=== PATIENT | female | born 1995 | race Caucasian/White ===

== ENCOUNTER 2018-10-13 15:32 | Inpatient (IN) | payer BC, OTHER ==
[2018-10-13] MEDS ORDERED: Tranexamic Acid 1,000 MG in Sodium Chloride 0.9% 100 ML IV PRN (15:45)
[2018-10-13] MEDS ORDERED: Oxytocin/0.9 % Sodium Chloride 30 UNIT/500 ML BAG IV SCH ×2 (15:45)
[2018-10-13] MEDS ORDERED: Methylergonovine 0.2 MG/1 ML Amp IM PRN (15:45)
[2018-10-13] MEDS ORDERED: Sodium Chloride 0.9% 10 ML Syringe FLUSH PRN (15:45)
[2018-10-13] MEDS ORDERED: Nalbuphine 10 MG/1 ML Vial IVPUSH PRN (15:45)
[2018-10-13] MEDS ORDERED: Sodium Chloride 0.9% 2.5 ML Syringe FLUSH PRN (15:45)
[2018-10-13] MEDS ORDERED: Lidocaine 1% 50 ML MDV INJECT PRN (15:45)
[2018-10-13] MEDS ORDERED: Water For Irrigation,Sterile 1,000 ML Container IRR PRN (15:45)
[2018-10-13] MEDS ORDERED: Butorphanol 1 MG/ML SDV IVPUSH PRN (15:45)
[2018-10-13] MEDS ORDERED: Carboprost Tromethamine 250 MCG/1 ML Amp IM PRN (15:45)
[2018-10-13] MEDS ORDERED: Terbutaline 1 MG/ML SDV SUBCUT PRN (15:45)
[2018-10-13] MEDS ORDERED: Misoprostol 200 MCG Tab PO PRN (15:45)
[2018-10-13] MEDS ORDERED: Ampicillin 2 GM in Sodium Chloride 0.9% 100 ML IV ONE (16:15)
[2018-10-13] MEDS ORDERED: Misoprostol 25 MCG (1/4 of 100 MCG) Tab VAG PRN ×2 (16:30→22:30)
[2018-10-13] MEDS: Lactated Ringers 1,000 ML IV SCH (16:48)
[2018-10-13] MEDS: Ampicillin 1 GM in Sodium Chloride 0.9% 50 ML IV SCH (20:45)
[2018-10-14] MEDS: Ampicillin 1 GM in Sodium Chloride 0.9% 50 ML IV SCH ×5 (00:44→22:06)
[2018-10-14] MEDS ORDERED: Lidocaine HCl/EPINEPHrine 5 ML IJ ONE (05:47)
[2018-10-14] MEDS ORDERED: fentaNYL 100 MCG/2 ML SDV ONE ×2 (05:48→15:56)
--- NOTE | 2018-10-14 06:46 | PCM.PREANE ---
Preanesthetic Assessment - Anesthesia/Transfusion/Family Hx Anesthesia History: Prior Anesthesia Without Reaction Family History of Anesthesia Reaction: No Transfusion History: No Prior Transfusion(s) - Review of Systems General: No Symptoms Pulmonary: No Symptoms Cardiovascular: No Symptoms Gastrointestinal: No Symptoms Neurological: No Symptoms Other: Reports: Easy Bleeding (Patient has factor V and has been on sq heparin which was stopped over 24 hours ago) - Physical Assessment Height: 1.63 m Weight: 77.111 kg ASA Class: 3 Mental Status: Alert & Oriented x3 Dentition: Reports: Normal Dentition (tongue piercing) ROM/Head Extension: Full - Lab Values: Laboratory Last Values WBC 14.72 K/uL (4.0-11.0) H 10/13/18 16:07 RBC 4.09 M/uL (4.30-5.90) L 10/13/18 16:07 Hgb 12.0 g/dL (12.0-16.0) 10/13/18 16:07 Hct 35.1 % (36.0-46.0) L 10/13/18 16:07 MCV 85.8 fL (80.0-98.0) 10/13/18 16:07 MCH 29.3 pg (27.0-32.0) 10/13/18 16:07 MCHC 34.2 g/dL (31.0-37.0) 10/13/18 16:07 RDW Std Deviation 44.0 fl (28.0-62.0) 10/13/18 16:07 RDW Coeff of Jeannie 14 % (11.0-15.0) 10/13/18 16:07 Plt Count 251 K/uL (150-400) 10/13/18 16:07 MPV 10.40 fL (7.40-12.00) 10/13/18 16:07 Nucleated RBC % 0.0 /100WBC 10/13/18 16:07 Nucleated RBCs # 0 K/uL 10/13/18 16:07 Blood Type AB POSITIVE 10/13/18 16:07 Antibody Screen NEGATIVE 10/13/18 16:07 - Allergies Allergies/Adverse Reactions: Allergies Allergy/AdvReac Type Severity Reaction Status Date / Time ibuprofen Allergy Vomiting Verified 10/13/18 16:24 sulfamethoxazole Allergy Hives Verified 10/13/18 16:24 [From ] trimethoprim [From ] Allergy Hives Verified 10/13/18 16:24 [email or web address] Allergy Hives Uncoded 10/13/18 16:24 - Acknowledgements Anesthesia Type Planned: Epidural Pt an Appropriate Candidate for the Planned Anesthesia: Yes Alternatives and Risks of Anesthesia Discussed w Pt/Guardian: Yes Pt/Guardian Understands and Agrees with Anesthesia Plan: Yes Additional Comments: Dr. Chun called and consulted concerning epidural placement and told about patient factor V and that sq heparin was stopped at 5:00 am Thursday (over 24 hours ago per patient) and Dr. Chun states it's ok to do epidural. Patient also educated on risk of bleeding in spine with weakness/paralysis and to be very vigilant after epidural out about weakness in legs and to report immediately to someone and patient verbalizes understanding. PreAnesthesia Questionnaire Gastrointestinal History: Reports: Other (See Below) Other Gastrointestinal History: Was initially diagnosed with celiac's disease but later that diagnosis was removed. Patient suffers from food sensitivities. WAIST CUTTER History: Reports: Hematologic History: Reports: Anticoagulation Therapy, Other (See Below) Other Hematologic History: Factor V leiden, on heparin. Right leg DVT in 2008. - Past Surgical History GI Surgical History: Reports: Colonoscopy, EGD - SUBSTANCE USE Smoking Status *Q: Current Every Day Smoker Tobacco Use Within Last Twelve Months: Cigarettes Second Hand Smoke Exposure: Yes Recreational Drug Use History: No - HOME MEDS Home Medications: Home Meds Acetaminophen [Tylenol Extra Strength] 500 mg PO DAILY PRN 10/13/18 [History] Calcium Carbonate [Tums] 500 mg PO DAILY PRN 10/13/18 [History] Heparin Sodium 5,000 units .XX BID 10/13/18 [History] PNV95/Ferrous Fumarate/FA [ Tablet] 1 tab PO DAILY 10/13/18 [History] - CURRENT (IN HOUSE) MEDS Current Meds: Current Medications Butorphanol Tartrate (Stadol) 1 mg IVPUSH Q1H PRN PRN Reason: Pain Carboprost Tromethamine (Hemabate Ds) 250 mcg IM ASDIRECTED PRN PRN Reason: Post Hemorrhage Ampicillin Sodium 1 gm/ Sodium (Chloride) 50 mls @ 100 mls/hr IV Q4H [facility] Last Admin: 10/14/18 04:56 Dose: 100 mls/hr Lactated Ringer's (Ringers, Lactated) 1,000 mls @ 150 mls/hr IV ASDIRECTED [facility] Last Admin: 10/13/18 16:48 Dose: 150 mls/hr Oxytocin/Sodium Chloride (Oxytocin 30 Unit/500 Ml-Ns) 30 unit in 500 mls @ 999 mls/hr IV TITRATE [facility] Oxytocin/Sodium Chloride (Oxytocin 30 Unit/500 Ml-Ns) 30 unit in 500 mls @ 2 mls/hr IV TITRATE S[facility]; Protocol Tranexamic Acid 1,000 mg/ (Sodium Chloride) 110 mls @ 660 mls/hr IV ONETIME PRN PRN Reason: Bleeding Lidocaine HCl (Xylocaine 1%) 50 ml INJECT ONETIME PRN PRN Reason: Laceration repair Methylergonovine Maleate (Methergine) 0.2 mg IM ASDIRECTED PRN PRN Reason: Post Hemorrhage Misoprostol (Cytotec) 200 mcg PO ONETIME PRN PRN Reason: Post Hemorrhage Misoprostol (Cytotec) 25 mcg VAG ONETIME PRN PRN Reason: Cervical Ripening Last Admin: 10/13/18 17:01 Dose: 25 mcg Misoprostol (Cytotec) 25 mcg VAG Q6H PRN PRN Reason: Cervical Ripening Last Admin: 10/14/18 00:46 Dose: 25 mcg Nalbuphine HCl (Nubain) 10 mg IVPUSH Q1H PRN PRN Reason: Pain (severe 7-10) Sodium Chloride (Saline Flush) 10 ml FLUSH ASDIRECTED PRN PRN Reason: Keep Vein Open Sodium Chloride (Saline Flush) 2.5 ml FLUSH ASDIRECTED PRN PRN Reason: Keep Vein Open Sterile Water (Sterile Water For Irrigation) 1,000 ml IRR ASDIRECTED PRN PRN Reason: delivery Terbutaline Sulfate (Brethine) 0.25 mg SUBCUT ASDIRECTED PRN PRN Reason: Tacysystole Discontinued Medications Fentanyl (Sublimaze) Confirm Administered Dose 100 mcg .ROUTE .STK-MED ONE Stop: 10/14/18 05:49 Ampicillin Sodium 2 gm/ Sodium (Chloride) 100 mls @ 200 mls/hr IV ONETIME ONE Stop: 10/13/18 16:44 Last Admin: 10/13/18 16:48 Dose: 200 mls/hr Fentanyl/Bupivacaine HCl (Cwqoyvhx-Rrfil-Dg 2 Mcg/Ml-0.125%) Confirm Administered Dose 100 mls @ as directed .ROUTE .STK-MED ONE Stop: 10/14/18 05:51 Lidocaine/Epinephrine (Lidocaine 1.5%-Epi 1:200,000) Confirm Administered Dose 5 ml IJ .STK-MED ONE Stop: 10/14/18 05:48
[2018-10-14] MEDS ORDERED: ePHEDrine 50 MG/ML SDV ONE (07:03)
[2018-10-14] MEDS ORDERED: Phenylephrine/Normal Saline 100 MCG/ML 10 ML Syringe ONE (07:03)
[2018-10-14] MEDS: Lactated Ringers 1,000 ML IV SCH ×3 (07:06→12:31)
[2018-10-14] MEDS ORDERED: Ondansetron 4 MG/2 ML SDV IVPUSH PRN ×2 (11:05→17:12)
--- NOTE | 2018-10-14 16:29 | PCM.SN ---
- Free Text/Narrative Note: Anesthesia Note: [id number] Called for pt experiencing hemorrhage post delivery with request for sedation to allow Dr. Hoyt to be able to more adequately perform fundal massage. Upon arrival [place] RN is mixing 1GM of TXA in 100mL NS. INHALATION THERAPIST increased pitocin from 250mL/hr to wide open as well as restarted LR at 999mL/ hr on pump and 100mL NS + 1GM TXA infused over approx 10 min. Initially 50mcg IV fentanyl given at approx 1600 and then repeated at 1605. VSS stable throughout and pt conscious. Dr. Hoyt estimates approximately 500mL EBL and with hold restarting Lovenox until tomorrow AM as long as pt is not showing increased signs of bleeding. By 1612, pt verbalizes that she is feeling much better and care turned back over to nursing staff. Fentanyl dose charted on epidural flow sheet. Epidural still intact and running at previous rate.
--- NOTE | 2018-10-14 16:38 | PCM.DEL ---
L & D Note - General Info Date of Service: 10/14/18 - Delivery Note Labor: Induced by Oxytocin Cervical Ripening Method: Misoprostil Delivery Outcome: Livebirth Delivery Method: Spontaneous Vaginal Delivery-Single Delivery Mode: Spontaneous Presentation: Left Occiput Anterior (NIK) Nuchal Cord: None Prep: Other Anesthesia Type: Epidural Amniotic Fluid Description: Clear Episiotomy Type: None Laceration: Labial, Vaginal Suture type: Vicryl Suture size: 3-0 Placenta: Intact, Spontaneous Cord: 3 Vessels Estimated Blood Loss: 500 Resuscitation Needed: No Score 1 min: 8 Score 5 min: 9 Induction Criteria - Reyes Score Reyes Score Dilation: 1-2 cm Reyes Score Effacement: 40-50% Reyes Score Infant's Station: -3 Reyes Score Consistency: Firm Reyes Score Cervix Position: Posterior Reyes Score Total: 2 Reyes Score Presenting Part: Reports: Cephalic - Induction Gestational Age >/= 39 wks: Yes Estimated Pelvis: Reports: Adequate Reassuring Monitoring Strip: Yes - General Info Date of Service: 10/14/18 - Patient Data Weight - Most Recent: 170 lb Lab Results Last 24 Hours: Laboratory Results - last 24 hr 10/13/18 Range/Units 16:07 Blood Type AB POSITIVE Antibody Screen NEGATIVE Med Orders - Current: Current Medications Butorphanol Tartrate (Stadol) 1 mg IVPUSH Q1H PRN PRN Reason: Pain Carboprost Tromethamine (Hemabate Ds) 250 mcg IM ASDIRECTED PRN PRN Reason: Post Hemorrhage Ampicillin Sodium 1 gm/ Sodium (Chloride) 50 mls @ 100 mls/hr IV Q4H [facility] Last Admin: 10/14/18 13:03 Dose: 100 mls/hr Lactated Ringer's (Ringers, Lactated) 1,000 mls @ 150 mls/hr IV ASDIRECTED [facility] Last Admin: 10/14/18 12:31 Dose: 150 mls/hr Oxytocin/Sodium Chloride (Oxytocin 30 Unit/500 Ml-Ns) 30 unit in 500 mls @ 999 mls/hr IV TITRATE [facility] Oxytocin/Sodium Chloride (Oxytocin 30 Unit/500 Ml-Ns) 30 unit in 500 mls @ 2 mls/hr IV TITRATE [facility]UD[facility]; Protocol Last Titration: 10/14/18 10:21 Dose: 8 munits/min, 8 mls/hr Tranexamic Acid 1,000 mg/ (Sodium Chloride) 110 mls @ 660 mls/hr IV ONETIME PRN PRN Reason: Bleeding Lidocaine HCl (Xylocaine 1%) 50 ml INJECT ONETIME PRN PRN Reason: Laceration repair Methylergonovine Maleate (Methergine) 0.2 mg IM ASDIRECTED PRN PRN Reason: Post Hemorrhage Misoprostol (Cytotec) 200 mcg PO ONETIME PRN PRN Reason: Post Hemorrhage Misoprostol (Cytotec) 25 mcg VAG ONETIME PRN PRN Reason: Cervical Ripening Last Admin: 10/13/18 17:01 Dose: 25 mcg Misoprostol (Cytotec) 25 mcg VAG Q6H PRN PRN Reason: Cervical Ripening Last Admin: 10/14/18 00:46 Dose: 25 mcg Nalbuphine HCl (Nubain) 10 mg IVPUSH Q1H PRN PRN Reason: Pain (severe 7-10) Ondansetron HCl (Zofran) 4 mg IVPUSH Q6H PRN PRN Reason: Nausea/Vomiting Last Admin: 10/14/18 11:21 Dose: 4 mg Sodium Chloride (Saline Flush) 10 ml FLUSH ASDIRECTED PRN PRN Reason: Keep Vein Open Sodium Chloride (Saline Flush) 2.5 ml FLUSH ASDIRECTED PRN PRN Reason: Keep Vein Open Sterile Water (Sterile Water For Irrigation) 1,000 ml IRR ASDIRECTED PRN PRN Reason: delivery Terbutaline Sulfate (Brethine) 0.25 mg SUBCUT ASDIRECTED PRN PRN Reason: Tacysystole Discontinued Medications Ephedrine Sulfate (Ephedrine Sulfate) Confirm Administered Dose 50 mg .ROUTE .STK-MED ONE Stop: 10/14/18 07:04 Fentanyl (Sublimaze) Confirm Administered Dose 100 mcg .ROUTE .STK-MED ONE Stop: 10/14/18 05:49 Fentanyl (Sublimaze) Confirm Administered Dose 200 mcg .ROUTE .STK-MED ONE Stop: 10/14/18 15:57 Ampicillin Sodium 2 gm/ Sodium (Chloride) 100 mls @ 200 mls/hr IV ONETIME ONE Stop: 10/13/18 16:44 Last Admin: 10/13/18 16:48 Dose: 200 mls/hr Fentanyl/Bupivacaine HCl (Dqjneesl-Wahfc-Ct 2 Mcg/Ml-0.125%) Confirm Administered Dose 100 mls @ as directed .ROUTE .STK-MED ONE Stop: 10/14/18 05:51 Fentanyl/Bupivacaine HCl (Xlyrudgy-Aspyb-Nk 2 Mcg/Ml-0.125%) Confirm Administered Dose 100 mls @ as directed .ROUTE .STK-MED ONE Stop: 10/14/18 14:17 Lidocaine/Epinephrine (Lidocaine 1.5%-Epi 1:200,000) Confirm Administered Dose 5 ml IJ .STK-MED ONE Stop: 10/14/18 05:48 Phenylephrine HCl (Phenylephrine In Ns 100 Mcg/Ml) Confirm Administered Dose 1 mg .ROUTE .STK-MED ONE Stop: 10/14/18 07:04 - Problem List & Annotations (1) Vaginal delivery SNOMED Code(s): 503358766 Code(s): O80 - ENCOUNTER FOR FULL-TERM UNCOMPLICATED DELIVERY Status: Acute Current Visit: Yes (2) Uterine atony SNOMED Code(s): 4836107 Code(s): O62.2 - OTHER UTERINE INERTIA Status: Acute Current Visit: Yes (3) Other specified diseases of blood and blood-forming organs SNOMED Code(s): 877292785 Code(s): D75.89 - OTHER SPECIFIED DISEASES OF BLOOD AND BLOOD-FORMING ORGANS Status: Acute Current Visit: Yes - Problem List Review Problem List Initiated/Reviewed/Updated: Yes - Plan Plan:: Given patient uterine atony with bleeding, will restart Lovenox tomorrow morning and keep SCDs in place
[2018-10-14] MEDS ORDERED: Lanolin 100% Cream 7 GM Tube TOP PRN (16:41)
[2018-10-14] MEDS ORDERED: Ibuprofen 400 MG Tab PO PRN (16:41)
[2018-10-14] MEDS ORDERED: Ibuprofen 800 MG Tab PO PRN (16:41)
[2018-10-14] MEDS ORDERED: oxyCODONE 5 MG Tab PO PRN (16:41)
[2018-10-14] MEDS ORDERED: Witch Hazel Medicated Pads 40/Jar TOP PRN (16:41)
[2018-10-14] MEDS ORDERED: Benzocaine/Menthol 20%-0.5% Spray 78 GM Cannister TOP PRN (16:41)
[2018-10-14] MEDS ORDERED: Docusate Sodium 100 MG Cap PO PRN (16:41)
[2018-10-14] MEDS ORDERED: Bisacodyl 10 MG Supp RECTAL PRN (16:41)
[2018-10-14] MEDS: Acetaminophen 500 MG Tab PO PRN (17:21)
--- NOTE | 2018-10-14 18:00 | OR ---
SURGEON: Rosario Hoyt MD DATE OF PROCEDURE: 10/14/2018 PREOPERATIVE DIAGNOSES: 1. Term at 39 weeks' gestation. 2. Induction of labor from history of thrombophilia with personal history of deep vein thrombosis. 3. Group B streptococcus positive. POSTOPERATIVE DIAGNOSES: 1. Term at 39 weeks' gestation. 2. Induction of labor from history of thrombophilia with personal history of deep vein thrombosis. 3. Group B streptococcus positive. 4. Delivered. 5. Uterine atony. PROCEDURE: 1. Spontaneous vaginal delivery. 2. Repair of perineal laceration. ANESTHESIA: Epidural. ESTIMATED BLOOD LOSS: 500 mL. DISPOSITION: Mother and baby are stable in Labor and Delivery room, [facility]. FINDINGS: Male , weight 3580 g, scores of 8 and 9 at 1 and 5 minutes respectively. Grossly normal placenta with three-vessel cord. Left vaginal wall laceration extending into the left labia. Uterine atony post delivery. BRIEF HISTORY: Linda is a 23-year-old primigravida who was admitted overnight for induction of labor secondary to a prior history of DVT with positive Factor V Leiden deficiency. The patient has been on prophylactic anticoagulation throughout her . She took her last dose of heparin yesterday morning. GBS positive. The patient received Cytotec for cervical ripening and oxytocin infusion was commenced at about 7:00 a.m. this morning. Spontaneous rupture of membrane occurred midmorning with clear amniotic fluid. She received multiple doses of ampicillin for GBS prophylaxis. She made good progress, becoming fully dilated in mid afternoon and commenced pushing thereafter. heart tracing remained category 1. The patient pushed quite well, brought the head down to +4 station, and was set up for delivery in modified dorsal lithotomy position. DESCRIPTION OF PROCEDURE: She had a spontaneous vaginal delivery of a live male in left occipitoanterior position, no nuchal cord, clear amniotic fluid at delivery. Anterior and posterior shoulders were delivered without difficulty followed by the rest of the baby. The baby was vigorous and cried spontaneously at and was delivered onto the maternal abdomen in the presence of the attendant nursery nurse who was cleaning, drying, and stimulating the baby. Delayed cord clamping was observed and the cord was subsequently cut by the father of the baby. With delivery of the , oxytocin infusion was converted to titration for active management of third stage of labor. Cord blood and gas samples were obtained. Placenta was delivered by controlled cord traction, appeared to be complete and intact. Immediately post delivery, uterine massage was performed and the uterus was found to be contracted. Examination of the perineum, cervix and vaginal ng revealed the left vaginal wall laceration, which was extended into the labia. This was repaired with 3-0 Vicryl suture and was hemostatic post repair. With further uterine massage, the uterus was noted to be boggy with approximately 100 mL of clots was expressed and evacuated from the lower uterine segment. The patient was then given a dose of Methergine 0.25 mg IM and bimanual uterine massage was continued. The uterus continued to be boggy and with the patient was feeling uncomfortable, epidural was stopped off by the BAGGER AND STOCK HANDLER HELPER. Her vital signs remained stable and another 100 mL of blood clots was evacuated. With Oxytocin ongoing , she was then given 1 g of tranexamic acid via IV infusion. With these measures the uterus firmed up quite well with subsequent uterine massage and the bleeding slowed down. I re-examined the perineum and the stitches were found to be intact. The patient tolerated the procedures well. Sponge, instrument, and needle counts were correct at the end of the delivery. ADUMVIV / MODL /[id number] MTDD
[2018-10-15] MEDS: Acetaminophen 500 MG Tab PO PRN ×5 (00:41→19:59)
[2018-10-15] MEDS: Enoxaparin 40 MG/0.4 ML Syringe SUBCUT SCH (06:03)
--- NOTE | 2018-10-15 06:53 | PCM48HPAN ---
Post Anesthesia Note - EVALUATION WITHIN 48HRS OF ANESTHETIC Vital Signs in Normal Range: Yes Patient Participated in Evaluation: Yes Respiratory Function Stable: Yes Airway Patent: Yes Cardiovascular Function Stable: Yes Hydration Status Stable: Yes Pain Control Satisfactory: Yes Nausea and Vomiting Control Satisfactory: Yes Mental Status Recovered: Yes Resp Rate: 16
--- NOTE | 2018-10-15 08:05 | PCM.PNPP ---
<LenaBonnie - Last Filed: 10/15/18 08:03> - General Info Date of Service: 10/15/18 Functional Status: Reports: Pain Controlled, Tolerating Diet, Ambulating, Urinating - Review of Systems General: Denies: Fever, Weakness, Fatigue Pulmonary: Denies: Shortness of Breath, Pleuritic Chest Pain, Cough Cardiovascular: Denies: Chest Pain, Palpitations, Dyspnea on Exertion Gastrointestinal: Denies: Abdominal Pain Genitourinary: Denies: Dysuria - General Info Date of Service: 10/15/18 - Patient Data Vital Signs - Most Recent: Last Vital Signs Temp 36.7 C 10/15/18 07:35 Pulse 82 10/15/18 07:35 Resp 17 10/15/18 07:35 BP 128/61 10/15/18 07:35 Pulse Ox 97 10/15/18 07:35 Weight - Most Recent: 77.111 kg Lab Results - Last 24 Hours: Laboratory Results - last 24 hr 10/14/18 10/15/18 Range/Units 15:30 04:50 Hgb 10.6 L (12.0-16.0) g/dL Hct 31.2 L (36.0-46.0) % Cord ABG pH 7.182 (7.18-7.38) Cord ABG Base Excess -8 (-10--2) Cord VBG pH 7.319 (7.25-7.45) Cord VBG Base Excess -7 (-10--2) Med Orders - Current: Current Medications Acetaminophen (Tylenol Extra Strength) 500 mg PO Q4H PRN PRN Reason: Pain Last Admin: 10/15/18 07:48 Dose: 500 mg Acetaminophen (Tylenol Extra Strength) 1,000 mg PO Q4H PRN PRN Reason: Pain Last Admin: 10/15/18 00:41 Dose: 1,000 mg Benzocaine/Menthol (Dermoplast Pain Relief 20%-0.5% [place]) 78 gm TOP ASDIRECTED PRN PRN Reason: Perineal Comfort Measure Last Admin: 10/14/18 17:20 Dose: 1 can Bisacodyl (Dulcolax) 10 mg RECTAL ONETIME PRN PRN Reason: Constipation Docusate Sodium (Colace) 100 mg PO BID PRN PRN Reason: Constipation Emollient Ointment (Lansinoh Hpa) 0 gm TOP ASDIRECTED PRN PRN Reason: Sore Nipples Enoxaparin Sodium (Lovenox) 40 mg SUBCUT Q24H [facility] Last Admin: 10/15/18 06:03 Dose: 40 mg Ondansetron HCl (Zofran) 4 mg IVPUSH Q6H PRN PRN Reason: Nausea/Vomiting Last Admin: 10/14/18 17:21 Dose: 4 mg Oxycodone HCl (Oxycodone) 5 mg PO Q2H PRN PRN Reason: Pain Witch Joellen (Tucks) 1 pad TOP ASDIRECTED PRN PRN Reason: comfort care Last Admin: 10/14/18 17:21 Dose: 1 tub Discontinued Medications Butorphanol Tartrate (Stadol) 1 mg IVPUSH Q1H PRN PRN Reason: Pain Carboprost Tromethamine (Hemabate Ds) 250 mcg IM ASDIRECTED PRN PRN Reason: Post Hemorrhage Ephedrine Sulfate (Ephedrine Sulfate) Confirm Administered Dose 50 mg .ROUTE .STK-MED ONE Stop: 10/14/18 07:04 Fentanyl (Sublimaze) Confirm Administered Dose 100 mcg .ROUTE .STK-MED ONE Stop: 10/14/18 05:49 Last Admin: 10/14/18 22:05 Dose: Not Given Fentanyl (Sublimaze) Confirm Administered Dose 200 mcg .ROUTE .STK-MED ONE Stop: 10/14/18 15:57 Last Admin: 10/14/18 22:06 Dose: Not Given Ampicillin Sodium 2 gm/ Sodium (Chloride) 100 mls @ 200 mls/hr IV ONETIME ONE Stop: 10/13/18 16:44 Last Admin: 10/13/18 16:48 Dose: 200 mls/hr Ampicillin Sodium 1 gm/ Sodium (Chloride) 50 mls @ 100 mls/hr IV Q4H [facility] Last Admin: 10/14/18 22:06 Dose: Not Given Lactated Ringer's (Ringers, Lactated) 1,000 mls @ 150 mls/hr IV ASDIRECTED [facility] Last Admin: 10/14/18 12:31 Dose: 150 mls/hr Oxytocin/Sodium Chloride (Oxytocin 30 Unit/500 Ml-Ns) 30 unit in 500 mls @ 999 mls/hr IV TITRATE [facility] Last Admin: 10/14/18 16:16 Dose: 125 mls/hr Oxytocin/Sodium Chloride (Oxytocin 30 Unit/500 Ml-Ns) 30 unit in 500 mls @ 2 mls/hr IV TITRATE [facility]; Protocol Last Titration: 10/14/18 10:21 Dose: 8 munits/min, 8 mls/hr Tranexamic Acid 1,000 mg/ (Sodium Chloride) 110 mls @ 660 mls/hr IV ONETIME PRN PRN Reason: Bleeding Last Admin: 10/14/18 16:00 Dose: 660 mls/hr Fentanyl/Bupivacaine HCl (Plyhihcs-Iqvna-En 2 Mcg/Ml-0.125%) Confirm Administered Dose 100 mls @ as directed .ROUTE .[employer] ONE Stop: 10/14/18 05:51 Last Admin: 10/14/18 22:06 Dose: Not Given Fentanyl/Bupivacaine HCl (Peadfnyi-Fiegw-Cz 2 Mcg/Ml-0.125%) Confirm Administered Dose 100 mls @ as directed .ROUTE .[place] ONE Stop: 10/14/18 14:17 Last Admin: 10/14/18 22:06 Dose: Not Given Lidocaine HCl (Xylocaine 1%) 50 ml INJECT ONETIME PRN PRN Reason: Laceration repair Lidocaine/Epinephrine (Lidocaine 1.5%-Epi 1:200,000) Confirm Administered Dose 5 ml IJ .Chtiogen-MED ONE Stop: 10/14/18 05:48 Last Admin: 10/14/18 22:05 Dose: Not Given Methylergonovine Maleate (Methergine) 0.2 mg IM ASDIRECTED PRN PRN Reason: Post Hemorrhage Last Admin: 10/14/18 16:39 Dose: 0.2 mg Misoprostol (Cytotec) 200 mcg PO ONETIME PRN PRN Reason: Post Hemorrhage Misoprostol (Cytotec) 25 mcg VAG ONETIME PRN PRN Reason: Cervical Ripening Last Admin: 10/13/18 17:01 Dose: 25 mcg Misoprostol (Cytotec) 25 mcg VAG Q6H PRN PRN Reason: Cervical Ripening Last Admin: 10/14/18 00:46 Dose: 25 mcg Nalbuphine HCl (Nubain) 10 mg IVPUSH Q1H PRN PRN Reason: Pain (severe 7-10) Ondansetron HCl (Zofran) 4 mg IVPUSH Q6H PRN PRN Reason: Nausea/Vomiting Last Admin: 10/14/18 11:21 Dose: 4 mg Phenylephrine HCl (Phenylephrine In Ns 100 Mcg/Ml) Confirm Administered Dose 1 mg .ROUTE .STK-MED ONE Stop: 10/14/18 07:04 Sodium Chloride (Saline Flush) 10 ml FLUSH ASDIRECTED PRN PRN Reason: Keep Vein Open Sodium Chloride (Saline Flush) 2.5 ml FLUSH ASDIRECTED PRN PRN Reason: Keep Vein Open Sterile Water (Sterile Water For Irrigation) 1,000 ml IRR ASDIRECTED PRN PRN Reason: delivery Last Admin: 10/14/18 15:32 Dose: 1,000 ml Terbutaline Sulfate (Brethine) 0.25 mg SUBCUT ASDIRECTED PRN PRN Reason: Tacysystole - Interaction Infant Disposition, : in Room with Family Feeding: Attempted ; Nursed Fair/Poor Support Person: Significant Other - Recovery Exam Fundal Tone: Firm Fundal Level: 2 Fingerbreadths Below Umbilicus Fundal Placement: Midline Lochia Amount: Small Lochia Color: Rubra/Red Perineum Description: Edematous Bladder Status: Voiding Urinary Elimination: Voided - Exam General: Alert, Oriented Neck: Supple Lungs: Clear to Auscultation, Normal Respiratory Effort Cardiovascular: Regular Rate, Regular Rhythm GI/Abdominal Exam: Normal Bowel Sounds, Soft, Non-Tender, No Distention, No Mass Extremities: Normal Inspection, Normal Range of Motion, Non-Tender, Normal Capillary Refill, Pedal Edema (1+) Skin: Warm, Dry, Intact - Problem List & Annotations (1) Vaginal delivery SNOMED Code(s): 637469352 Code(s): O80 - ENCOUNTER FOR FULL-TERM UNCOMPLICATED DELIVERY Status: Acute Current Visit: Yes - Problem List Review Problem List Initiated/Reviewed/Updated: Yes - Assessment Assessment:: PPD#1 s/p . Minimal pain and lochia. Breast feeding well. Will continue Lovenox during PP period. Discharge home today. - Plan Plan:: Discharge home today. Can use OTC tylenol as needed for pain. Instructed patient to call if she develops fever greater than 101 or bleeding through a large pad an hour. Continue PNV while breast feeding. F/U with [facility] in 6 weeks <KanaMegha Gia - Last Filed: 10/15/18 08:22> - Patient Data Vital Signs - Most Recent: Last Vital Signs Temp 36.7 C 10/15/18 07:35 Pulse 82 10/15/18 07:35 Resp 17 10/15/18 07:35 BP 128/61 10/15/18 07:35 Pulse Ox 97 10/15/18 07:35 Lab Results - Last 24 Hours: Laboratory Results - last 24 hr 10/14/18 10/15/18 Range/Units 15:30 04:50 Hgb 10.6 L (12.0-16.0) g/dL Hct 31.2 L (36.0-46.0) % Cord ABG pH 7.182 (7.18-7.38) Cord ABG Base Excess -8 (-10--2) Cord VBG pH 7.319 (7.25-7.45) Cord VBG Base Excess -7 (-10--2) Med Orders - Current: Current Medications Acetaminophen (Tylenol Extra Strength) 500 mg PO Q4H PRN PRN Reason: Pain Last Admin: 10/15/18 07:48 Dose: 500 mg Acetaminophen (Tylenol Extra Strength) 1,000 mg PO Q4H PRN PRN Reason: Pain Last Admin: 10/15/18 00:41 Dose: 1,000 mg Benzocaine/Menthol (Dermoplast Pain Relief 20%-0.5% [place]) 78 gm TOP ASDIRECTED PRN PRN Reason: Perineal Comfort Measure Last Admin: 10/14/18 17:20 Dose: 1 can Bisacodyl (Dulcolax) 10 mg RECTAL ONETIME PRN PRN Reason: Constipation Docusate Sodium (Colace) 100 mg PO BID PRN PRN Reason: Constipation Emollient Ointment (Lansinoh Hpa) 0 gm TOP ASDIRECTED PRN PRN Reason: Sore Nipples Enoxaparin Sodium (Lovenox) 40 mg SUBCUT Q24H [facility] Last Admin: 10/15/18 06:03 Dose: 40 mg Ondansetron HCl (Zofran) 4 mg IVPUSH Q6H PRN PRN Reason: Nausea/Vomiting Last Admin: 10/14/18 17:21 Dose: 4 mg Oxycodone HCl (Oxycodone) 5 mg PO Q2H PRN PRN Reason: Pain Witch Joellen (Tucks) 1 pad TOP ASDIRECTED PRN PRN Reason: comfort care Last Admin: 10/14/18 17:21 Dose: 1 tub Discontinued Medications Butorphanol Tartrate (Stadol) 1 mg IVPUSH Q1H PRN PRN Reason: Pain Carboprost Tromethamine (Hemabate Ds) 250 mcg IM ASDIRECTED PRN PRN Reason: Post Hemorrhage Ephedrine Sulfate (Ephedrine Sulfate) Confirm Administered Dose 50 mg .ROUTE .STK-MED ONE Stop: 10/14/18 07:04 Fentanyl (Sublimaze) Confirm Administered Dose 100 mcg .ROUTE .STK-MED ONE Stop: 10/14/18 05:49 Last Admin: 10/14/18 22:05 Dose: Not Given Fentanyl (Sublimaze) Confirm Administered Dose 200 mcg .ROUTE .STK-MED ONE Stop: 10/14/18 15:57 Last Admin: 10/14/18 22:06 Dose: Not Given Ampicillin Sodium 2 gm/ Sodium (Chloride) 100 mls @ 200 mls/hr IV ONETIME ONE Stop: 10/13/18 16:44 Last Admin: 10/13/18 16:48 Dose: 200 mls/hr Ampicillin Sodium 1 gm/ Sodium (Chloride) 50 mls @ 100 mls/hr IV Q4H [facility] Last Admin: 10/14/18 22:06 Dose: Not Given Lactated Ringer's (Ringers, Lactated) 1,000 mls @ 150 mls/hr IV ASDIRECTED [facility] Last Admin: 10/14/18 12:31 Dose: 150 mls/hr Oxytocin/Sodium Chloride (Oxytocin 30 Unit/500 Ml-Ns) 30 unit in 500 mls @ 999 mls/hr IV TITRATE [facility] Last Admin: 10/14/18 16:16 Dose: 125 mls/hr Oxytocin/Sodium Chloride (Oxytocin 30 Unit/500 Ml-Ns) 30 unit in 500 mls @ 2 mls/hr IV TITRATE [facility]; Protocol Last Titration: 10/14/18 10:21 Dose: 8 munits/min, 8 mls/hr Tranexamic Acid 1,000 mg/ (Sodium Chloride) 110 mls @ 660 mls/hr IV ONETIME PRN PRN Reason: Bleeding Last Admin: 10/14/18 16:00 Dose: 660 mls/hr Fentanyl/Bupivacaine HCl (Qfnlcaeo-Gjdpu-Gb 2 Mcg/Ml-0.125%) Confirm Administered Dose 100 mls @ as directed .ROUTE .Chtiogen-MED ONE Stop: 10/14/18 05:51 Last Admin: 10/14/18 22:06 Dose: Not Given Fentanyl/Bupivacaine HCl (Gyraxiqm-Rvhqh-Ih 2 Mcg/Ml-0.125%) Confirm Administered Dose 100 mls @ as directed .ROUTE .[place] ONE Stop: 10/14/18 14:17 Last Admin: 10/14/18 22:06 Dose: Not Given Lidocaine HCl (Xylocaine 1%) 50 ml INJECT ONETIME PRN PRN Reason: Laceration repair Lidocaine/Epinephrine (Lidocaine 1.5%-Epi 1:200,000) Confirm Administered Dose 5 ml IJ .[place] ONE Stop: 10/14/18 05:48 Last Admin: 10/14/18 22:05 Dose: Not Given Methylergonovine Maleate (Methergine) 0.2 mg IM ASDIRECTED PRN PRN Reason: Post Hemorrhage Last Admin: 10/14/18 16:39 Dose: 0.2 mg Misoprostol (Cytotec) 200 mcg PO ONETIME PRN PRN Reason: Post Hemorrhage Misoprostol (Cytotec) 25 mcg VAG ONETIME PRN PRN Reason: Cervical Ripening Last Admin: 10/13/18 17:01 Dose: 25 mcg Misoprostol (Cytotec) 25 mcg VAG Q6H PRN PRN Reason: Cervical Ripening Last Admin: 10/14/18 00:46 Dose: 25 mcg Nalbuphine HCl (Nubain) 10 mg IVPUSH Q1H PRN PRN Reason: Pain (severe 7-10) Ondansetron HCl (Zofran) 4 mg IVPUSH Q6H PRN PRN Reason: Nausea/Vomiting Last Admin: 10/14/18 11:21 Dose: 4 mg Phenylephrine HCl (Phenylephrine In Ns 100 Mcg/Ml) Confirm Administered Dose 1 mg .ROUTE .[place] ONE Stop: 10/14/18 07:04 Sodium Chloride (Saline Flush) 10 ml FLUSH ASDIRECTED PRN PRN Reason: Keep Vein Open Sodium Chloride (Saline Flush) 2.5 ml FLUSH ASDIRECTED PRN PRN Reason: Keep Vein Open Sterile Water (Sterile Water For Irrigation) 1,000 ml IRR ASDIRECTED PRN PRN Reason: delivery Last Admin: 10/14/18 15:32 Dose: 1,000 ml Terbutaline Sulfate (Brethine) 0.25 mg SUBCUT ASDIRECTED PRN PRN Reason: Tacysystole - Plan Plan:: Patient seen and examined, resumed lovenox this am. Will see how day goes with feeding--she would like to go home tonight, but may ask her to stay until tomorrow.
[2018-10-16] MEDS: Acetaminophen 500 MG Tab PO PRN (00:20)
[2018-10-16] MEDS: Enoxaparin 40 MG/0.4 ML Syringe SUBCUT SCH (06:17)
--- NOTE | 2018-10-16 10:11 | PCM.PNPP ---
- General Info Date of Service: 10/16/18 Functional Status: Reports: Pain Controlled, Tolerating Diet, Ambulating, Urinating - Review of Systems General: Denies: Fever, Weakness Pulmonary: Denies: Shortness of Breath Cardiovascular: Denies: Chest Pain, Palpitations, Lightheadedness Gastrointestinal: Denies: Abdominal Pain, Nausea, Vomiting Genitourinary: Denies: Flank Pain Musculoskeletal: Reports: No Symptoms Neurological: Reports: No Symptoms Psychiatric: Reports: No Symptoms - General Info Date of Service: 10/16/18 - Patient Data Vital Signs - Most Recent: Last Vital Signs Temp 36.4 C 10/16/18 07:35 Pulse 80 10/16/18 07:35 Resp 16 10/16/18 07:35 BP 123/71 10/16/18 07:35 Pulse Ox 97 10/16/18 07:35 Weight - Most Recent: 77.111 kg Med Orders - Current: Current Medications Acetaminophen (Tylenol Extra Strength) 500 mg PO Q4H PRN PRN Reason: Pain Last Admin: 10/15/18 19:59 Dose: 500 mg Acetaminophen (Tylenol Extra Strength) 1,000 mg PO Q4H PRN PRN Reason: Pain Last Admin: 10/16/18 00:20 Dose: 1,000 mg Benzocaine/Menthol (Dermoplast Pain Relief 20%-0.5% [place]) 78 gm TOP ASDIRECTED PRN PRN Reason: Perineal Comfort Measure Last Admin: 10/14/18 17:20 Dose: 1 can Bisacodyl (Dulcolax) 10 mg RECTAL ONETIME PRN PRN Reason: Constipation Docusate Sodium (Colace) 100 mg PO BID PRN PRN Reason: Constipation Emollient Ointment (Lansinoh Hpa) 0 gm TOP ASDIRECTED PRN PRN Reason: Sore Nipples Enoxaparin Sodium (Lovenox) 40 mg SUBCUT Q24H [facility] Last Admin: 10/16/18 06:17 Dose: 40 mg Ondansetron HCl (Zofran) 4 mg IVPUSH Q6H PRN PRN Reason: Nausea/Vomiting Last Admin: 10/14/18 17:21 Dose: 4 mg Oxycodone HCl (Oxycodone) 5 mg PO Q2H PRN PRN Reason: Pain Witch Joellen (Tucks) 1 pad TOP ASDIRECTED PRN PRN Reason: comfort care Last Admin: 10/14/18 17:21 Dose: 1 tub Discontinued Medications Butorphanol Tartrate (Stadol) 1 mg IVPUSH Q1H PRN PRN Reason: Pain Carboprost Tromethamine (Hemabate Ds) 250 mcg IM ASDIRECTED PRN PRN Reason: Post Hemorrhage Ephedrine Sulfate (Ephedrine Sulfate) Confirm Administered Dose 50 mg .ROUTE .STK-MED ONE Stop: 10/14/18 07:04 Fentanyl (Sublimaze) Confirm Administered Dose 100 mcg .ROUTE .STK-MED ONE Stop: 10/14/18 05:49 Last Admin: 10/14/18 22:05 Dose: Not Given Fentanyl (Sublimaze) Confirm Administered Dose 200 mcg .ROUTE .STK-MED ONE Stop: 10/14/18 15:57 Last Admin: 10/14/18 22:06 Dose: Not Given Ampicillin Sodium 2 gm/ Sodium (Chloride) 100 mls @ 200 mls/hr IV ONETIME ONE Stop: 10/13/18 16:44 Last Admin: 10/13/18 16:48 Dose: 200 mls/hr Ampicillin Sodium 1 gm/ Sodium (Chloride) 50 mls @ 100 mls/hr IV Q4H [facility] Last Admin: 10/14/18 22:06 Dose: Not Given Lactated Ringer's (Ringers, Lactated) 1,000 mls @ 150 mls/hr IV ASDIRECTED [facility] Last Admin: 10/14/18 12:31 Dose: 150 mls/hr Oxytocin/Sodium Chloride (Oxytocin 30 Unit/500 Ml-Ns) 30 unit in 500 mls @ 999 mls/hr IV TITRATE [facility] Last Admin: 10/14/18 16:16 Dose: 125 mls/hr Oxytocin/Sodium Chloride (Oxytocin 30 Unit/500 Ml-Ns) 30 unit in 500 mls @ 2 mls/hr IV TITRATE [facility]; Protocol Last Titration: 10/14/18 10:21 Dose: 8 munits/min, 8 mls/hr Tranexamic Acid 1,000 mg/ (Sodium Chloride) 110 mls @ 660 mls/hr IV ONETIME PRN PRN Reason: Bleeding Last Admin: 10/14/18 16:00 Dose: 660 mls/hr Fentanyl/Bupivacaine HCl (Qdqobqho-Bofiv-Av 2 Mcg/Ml-0.125%) Confirm Administered Dose 100 mls @ as directed .ROUTE .STK-MED ONE Stop: 10/14/18 05:51 Last Admin: 10/14/18 22:06 Dose: Not Given Fentanyl/Bupivacaine HCl (Khxwjssw-Wvmfh-Fn 2 Mcg/Ml-0.125%) Confirm Administered Dose 100 mls @ as directed .ROUTE .STK-MED ONE Stop: 10/14/18 14:17 Last Admin: 10/14/18 22:06 Dose: Not Given Lidocaine HCl (Xylocaine 1%) 50 ml INJECT ONETIME PRN PRN Reason: Laceration repair Lidocaine/Epinephrine (Lidocaine 1.5%-Epi 1:200,000) Confirm Administered Dose 5 ml IJ [email or web address] ONE Stop: 10/14/18 05:48 Last Admin: 10/14/18 22:05 Dose: Not Given Methylergonovine Maleate (Methergine) 0.2 mg IM ASDIRECTED PRN PRN Reason: Post Hemorrhage Last Admin: 10/14/18 16:39 Dose: 0.2 mg Misoprostol (Cytotec) 200 mcg PO ONETIME PRN PRN Reason: Post Hemorrhage Misoprostol (Cytotec) 25 mcg VAG ONETIME PRN PRN Reason: Cervical Ripening Last Admin: 10/13/18 17:01 Dose: 25 mcg Misoprostol (Cytotec) 25 mcg VAG Q6H PRN PRN Reason: Cervical Ripening Last Admin: 10/14/18 00:46 Dose: 25 mcg Nalbuphine HCl (Nubain) 10 mg IVPUSH Q1H PRN PRN Reason: Pain (severe 7-10) Ondansetron HCl (Zofran) 4 mg IVPUSH Q6H PRN PRN Reason: Nausea/Vomiting Last Admin: 10/14/18 11:21 Dose: 4 mg Phenylephrine HCl (Phenylephrine In Ns 100 Mcg/Ml) Confirm Administered Dose 1 mg .ROUTE [email or web address] ONE Stop: 10/14/18 07:04 Sodium Chloride (Saline Flush) 10 ml FLUSH ASDIRECTED PRN PRN Reason: Keep Vein Open Sodium Chloride (Saline Flush) 2.5 ml FLUSH ASDIRECTED PRN PRN Reason: Keep Vein Open Sterile Water (Sterile Water For Irrigation) 1,000 ml IRR ASDIRECTED PRN PRN Reason: delivery Last Admin: 10/14/18 15:32 Dose: 1,000 ml Terbutaline Sulfate (Brethine) 0.25 mg SUBCUT ASDIRECTED PRN PRN Reason: Tacysystole - Infant Interaction Disposition, : in Room with Family Feeding: Attempted ; Nursed Fair/Poor Support Person: Significant Other - Recovery Exam Fundal Tone: Firm Fundal Level: 1 Fingerbreadths Below Umbilicus Fundal Placement: Midline Lochia Amount: Scant Lochia Color: Rubra/Red Perineum Description: Other (see below) Other Perinuem Description: vaginal laceration Episiotomy/Laceration: Approximated Bladder Status: Voiding Urinary Elimination: Voided - Exam General: Alert, Oriented Lungs: Normal Respiratory Effort Cardiovascular: Regular Rate GI/Abdominal Exam: Soft, Non-Tender Extremities: Pedal Edema (trace). No: Lucia's Sign Skin: Warm, Dry, Intact Psy/Mental Status: Alert, Normal Affect, Normal Mood - Problem List & Annotations (1) Vaginal delivery SNOMED Code(s): 904518422 Code(s): O80 - ENCOUNTER FOR FULL-TERM UNCOMPLICATED DELIVERY Status: Acute Current Visit: Yes - Problem List Review Problem List Initiated/Reviewed/Updated: Yes - My Orders Last 24 Hours: My Active Orders 10/16/18 10:09 Ready for Discharge [RC] PER UNIT ROUTINE - Assessment Assessment:: PPD#2 s/p . - Plan Plan:: continues to go well and baby's bilirubin is improved today. Allow discharge to home today. Discharge instructions reviewed. [facility] 6 weeks. Continue lovenox prophylactically in period.
== END 2018-10-16 11:50 | disposition home or self-care (01) | DRG 560 ==
LOC: MW.OB 15:32 → OBSVTOIN 10-14 15:32
PROVIDERS: ADMIT Obstetrics & Gynecology; ATTEND Obstetrics & Gynecology
PROC: 0UQGXZZ Repair Vagina, External Approach (ICD-10-PCS; principal; 2018-10-14)
PROC: 10H07YZ Insertion of Other Device into Products of Conception, Via Natural or Artificial Opening (ICD-10-PCS; principal; 2018-10-14)
PROC: 0UQMXZZ Repair Vulva, External Approach (ICD-10-PCS; principal; 2018-10-14)
PROC: 3E033VJ Introduction of Other Hormone into Peripheral Vein, Percutaneous Approach (ICD-10-PCS; principal; 2018-10-14)
PROC: 10E0XZZ Delivery of Products of Conception, External Approach (ICD-10-PCS; principal; 2018-10-14)
PROC: 6A550ZT Pheresis of Cord Blood Stem Cells, Single (ICD-10-PCS; principal; 2018-10-14)
PROC: 3E0P7VZ Introduction of Hormone into Female Reproductive, Via Natural or Artificial Opening (ICD-10-PCS; principal; 2018-10-14)
PROC: 00HU33Z Insertion of Infusion Device into Spinal Canal, Percutaneous Approach (ICD-10-PCS; 2018-10-14)
PROC: 3E0R3BZ Introduction of Anesthetic Agent into Spinal Canal, Percutaneous Approach (ICD-10-PCS; 2018-10-14)
DX: O99.824 Streptococcus B carrier state complicating childbirth (principal); O99.12 Other diseases of the blood and blood-forming organs and certain disorders involving the immune mechanism complicating childbirth; D68.51 Activated protein C resistance; Z37.0 Single live birth; O72.1 Other immediate postpartum hemorrhage; Z3A.39 39 weeks gestation of pregnancy; O99.334 Smoking (tobacco) complicating childbirth; F17.210 Nicotine dependence, cigarettes, uncomplicated; O70.0 First degree perineal laceration during delivery; Z86.718 Personal history of other venous thrombosis and embolism; Z79.01 Long term (current) use of anticoagulants; Z88.1 Allergy status to other antibiotic agents; Z88.8 Allergy status to other drugs, medicaments and biological substances; Z91.018 Allergy to other foods
CPT/HCPCS: 01967; 36415; 59025; 59409; 82803; 85014; 85018; 85027; 86850; 86900; 86901; A9270-GY; J0290; J1650; J2210; J2370; J2405; J2590; J7030; J7050; J7120